=== PATIENT | female | born 1965 | race Caucasian/White ===

== ENCOUNTER → 2018-05-28 13:04 | Outpatient (CLI) | payer OTHER, SELFPAY ==
--- NOTE | 2018-05-28 | DI.MG.S_ITS ---
BILATERAL DIGITAL SCREENING MAMMOGRAM 3D/2D WITH CAD: 05/28/2018 CLINICAL: Routine screening. Comparison is made to exams dated: 02/24/2017 mammogram, 12/07/2015 mammogram, and 09/26/2014 mammogram - [facility]. The tissue of both breasts is heterogeneously dense. This may lower the sensitivity of mammography. Current study was also evaluated with a Computer Aided Detection (CAD) system. No significant masses, calcifications, or other findings are seen in either breast. There has been no significant interval change. IMPRESSION: NEGATIVE There is no mammographic evidence of malignancy. A 1 year screening mammogram is recommended. This exam was interpreted at Station ID: [id number]. NOTE: For mammograms, a report in lay terms will be sent to the patient. Approximately 15% of breast malignancies will not be visualized mammographically. In the management of a palpable breast mass, a negative mammogram must not discourage biopsy of a clinically suspicious lesion. Electronically Signed By: Lisa allan/franklyn:05/28/2018 14:56:39 letter sent: Normal Exam ACR BI-RADS Category 1: Negative [id number]
== END ==
PROVIDERS: PCP Family Medicine; Visit Provider Family Medicine
DX: Z12.31 Encounter for screening mammogram for malignant neoplasm of breast (principal)
CPT/HCPCS: 77063; 77067

== ENCOUNTER → 2018-06-07 09:27 | Outpatient (CLI) | payer OTHER, SELFPAY ==
[2018-06-07 11:05] LABS: Add Manual Diff / Slide Review NO; Basophils Percent Auto 0.5 % (0-2); Hematocrit 40.2 % (36-46); Hemoglobin 13.4 g/dL (12.0-16.0); Lymphocytes Percent Auto 28.9 % (25-40); Mean Corpuscular HGB Conc 33.4 % (30-36); Mean Corpuscular Hemoglobin 31.8 PG (26-34); Mean Corpuscular Volume 95.3 fL (80-100); Monocytes Percent Auto 6.9 % (3-14); Neutrophils Absolute Auto 3100 /uL (3000-5900); Neutrophils Percent Auto 60.7 % (50-75); Platelet Count 212 X10^3/uL (150-400); Red Blood Cell Count 4.22 X10^6/uL (4.0-5.2); Red Cell Distribution Width 13.1 % (11.6-14.8); White Blood Cell Count 5.1 X10^3/uL (4.5-11.0)
[2018-06-07 11:19] LABS: Erythrocyte Sedimentation Rate 5 MM/HR (0-20)
[2018-06-07 11:28] LABS: Alanine Aminotransferase 22 IU/L (9-52); Albumin 3.9 g/dL (3.5-5.0); Albumin Globulin Ratio 1.5 (1.0-2.8); Alkaline Phosphatase 74 U/L (38-126); Aspartate Aminotransferase 25 IU/L (14-36); BUN Creatinine Ratio 18.8 (6-22); Bilirubin Total 0.6 mg/dL (0.2-1.3); Blood Urea Nitrogen 15 mg/dL (7-17); Calcium 9.1 mg/dL (8.4-10.2); Carbon Dioxide 29 mmol/L (22-32); Chloride 103 mmol/L (98-107); Cholesterol 152 mg/dL (140-199); Estimated Glomerular Filt Rate > 60.0 mL/min (>60); Globulin 2.6 g/dL (1.7-4.1); Glucose 101 mg/dL (70-100); HDL Cholesterol 62 mg/dL (40-60); HEMOLYSIS < 15 (0-50); LDL Cholesterol Calculated 75 mg/dL (<100); Sodium 140 mmol/L (137-145); Total Protein 6.5 g/dL (6.3-8.2); Triglycerides 74 mg/dL (35-150)
[2018-06-07 11:34] LABS: C-Reactive Protein Quant < 0.5 mg/dL (<1.0)
== END ==
PROVIDERS: PCP Family Medicine; Visit Provider Family Medicine
DX: J32.9 Chronic sinusitis, unspecified (principal); M79.89 Other specified soft tissue disorders; N95.1 Menopausal and female climacteric states
CPT/HCPCS: 36415; 80053; 80061; 83001; 84443; 85025; 85651; 86140

== ENCOUNTER → 2018-06-10 12:09 | Outpatient (CLI) | payer OTHER, SELFPAY ==
--- NOTE | 2018-06-10 12:11 | DI.RAD.S_ITS ---
PROCEDURE: XR HIP W PEL IF DONE RT 2V INDICATIONS: right hip pain TECHNIQUE: AP pelvis with lateral view(s) of the right hip(s). COMPARISON: None. FINDINGS: Bones: No fractures or dislocations. Pelvic ring appears intact. No suspicious bony lesions. Mild right hip joint osteoarthritis is seen, no evidence of avascular necrosis. Soft tissues: The visualized bowel gas pattern is normal. No suspicious soft tissue calcifications. IMPRESSION: Mild right hip joint osteoarthritis. No fracture or dislocation. No evidence of avascular necrosis. Dictated by: Tyrell Almanza M.D. on 06/10/2018 at 13:25 Approved by: Tyrell Almanza M.D. on 06/10/2018 at 13:27
== END ==
PROVIDERS: PCP Family Medicine; Visit Provider Family Medicine
DX: M16.11 Unilateral primary osteoarthritis, right hip (principal); M25.551 Pain in right hip
CPT/HCPCS: 73502

== ENCOUNTER → 2018-07-13 13:00 | Outpatient (CLI) | payer OTHER, SELFPAY | PROVIDERS: PCP Family Medicine | DX: Z23 Encounter for immunization (principal) ==

== ENCOUNTER 2018-08-31 16:00 | Outpatient (RCR) | payer OTHER, SELFPAY ==
--- NOTE | 2018-08-24 16:45 | PT.OPPOC ---
Current Diagnoses Lesion of sciatic nerve, right lower limb (08/24/18) Unilateral primary osteoarthritis, right hip (08/24/18) Myalgia, other site (08/24/18) Provider Visit Care Team Role Provider Type Neda Washington MD Attending Provider Physician Primary Care Provider Specialty: Family Practice Address: [address] [place] [address], [facility] Email: [email or web address] Plan Of Care PT-OP-T Assessment and Plan Start: 08/25/18 16:24 Freq: Status: Active Protocol: Document 08/24/18 16:00 DCW (Rec: 08/25/18 17:46 DCW [id number]) Physical Therapy Assessment Rehab Potential Rehabilitation Potential Excellent Evaluation Complexity Number of Personal Factors/Comorbidities 1-2 Number of Body Systems Impaired 1-2 Clinical Presentation at Evaluation Stable Impairments Impairments Functional Activities Pain Soft Tissue Mobility Strength Goals Four Impairment Activity participation Short Term Goal (STG) Pt to have no increased symptoms ascending stairs STG Duration 09/24/18 Patient Registration Supervisor Goal (LTG) Pt to get up from ground following yard work with no increased symptoms LTG Duration 10/24/18 Three Impairment Hip ROM Shelter Goal (LTG) right hip IR equal to left hip IR LTG Duration 10/24/18 Two Impairment Moderate tone of Piriformis Patient Registration Supervisor Goal (LTG) Mild tone with palpation of piriformis LTG Duration 10/24/18 One Impairment Pt does not have an appropriate home exercise program Short Term Goal (STG) Pt to be independent and compliant with an appropriate HEP STG Duration 09/24/18 Assessment Summary Assessment Pt presents with signs and symptoms suggestive of piriformis syndrome. The location of her pain, combined with no increased pain when compression through her hip, and her decreased internal rotation, all make piriformis syndrome more likely than DJD, although her x-ray showing mild OA may cause some of her symptoms. Pt's history is complicated by multiple microdiscectomies. Pt should benefit from strengthening and flexibility training, to improve hip ROM, decrease pain , and improve functional mobility. Physical Therapy Plan Frequency and Duration Frequency of Treatment 1x/Week Duration of Treatment 10 weeks Plan of Care Start Date 08/24/18 Plan of Care End Date 11/02/18 Therapeutic Interventions Therapeutic Interventions Aquatic Therapy Home Exercise Program Joint Mobilizations Manual Therapy Patient/Caregiver Education Self-Care/Home Management Soft Tissue Mobilization Therapeutic Activities Therapeutic Exercises Modalities Cold Pack/Ice Massage Electric Stimulation Hot Packs Ultrasound Next Visit Focus/Plan Next Note Type Treatment Note Next Visit Plan Flexibility, Strengthening, Modalities Plan of Care Dates Plan of Care Start Date 08/24/18 Plan of Care End Date 11/02/18 Please Sign and Return: I have reviewed this Plan of Care and certify that the skilled therapy services above are required to meet the patient?s needs. Physician Signature Date Printed Name and Credentials Clinical Instructor Signature Printed Name and Credentials
--- NOTE | 2018-08-24 16:45 | PT.OIE ---
Current Diagnoses Lesion of sciatic nerve, right lower limb (08/24/18) Unilateral primary osteoarthritis, right hip (08/24/18) Myalgia, other site (08/24/18) Past Medical History (Last Updated 06/08/18 @ 10:18 by Anny Valladares) Frequent UTI (Chronic ~1996) Lumbar degenerative disc disease (Chronic) Rosacea (Chronic 1999) Chicken pox (Resolved ~1971) Past Surgical History (Last Updated 06/08/18 @ 10:18 by Anny Valladares) Anesthesia (Resolved) Status post discectomy (Resolved 2008) Status post discectomy (Resolved 2010) Status post hysterectomy (Resolved 2010) Provider Visit Care Team Role Provider Type Neda Washington MD Attending Provider Physician Primary Care Provider Specialty: Family Practice Address: [address] [place] [address] Email: [email or web address] Physical Therapy Initial Evaluation PT-OP-A Visit Information Start: 08/25/18 16:24 Freq: Status: Active Protocol: Document 08/24/18 16:00 DCW (Rec: 08/25/18 17:46 [facility] [id number]) Out-Patient Physical Therapy Visit Information Visit Information Visit Type Initial Evaluation Visit Start Time 16:00 Visit Stop Time 16:45 Total Visit Minutes 45 Visit Number 1 Number of CRANE HOIST OR LIFT OPERATOR Visits 0 Evaluation Information Evaluation Date 08/24/18 PT-OP-B Current Condition Start: 08/25/18 16:24 Freq: Status: Active Protocol: Document 08/24/18 16:00 DCW (Rec: 08/25/18 17:46 DC [id number]) Current Condition History of Current Condition Onset Date Two years Current Complaints Posteriolateral hip pain History of Current Condition Pt is a 53 year old female presenting with a two year history of occasional posteriolateral hip pain. Pt's history is complicated with two microdiscectomies, the first, L4-5 in 2008, which she reports was fantastic, and solved all the problems, until her right leg began cramping up again two years later, and had a second surgery, at L5-S1, which she admits has left her with general uncomfortableness. Recently, she has been experiencing some right hip pain, and she was unsure if this was related to her back, or her mild arthritis, which was just noted on a recent hip x-ray. Pt notes increased pain when getting up from sitting, crossing her legs, or carrying things up stairs. Reports getting up from the ground after yardwork is almost impossible due to pain , as is running or performing lunges. Additionally, pt is unable to sleep on her right side. Pt admits that she typically feels better after stretching. Notes no pain in her anterior hip. Prior Treatments and Tests 2018 X-ray: Mild R osteoarthritis 2017 Lumbar MRI: significantly decreased central disc protrusion following 2011 surgery, no other significant changes. 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 Prior Functional Status Baseline Function- ADL's Independent Baseline Function- Mobility Independent Current Functional Impairments (Reported) Functional Limitations- ADL's Difficulty getting up from chair or crossing legs, pain sleeping on right side Functional Limitations- Recreation/ Unable to get up from ground Hobbies after yard wiork without increased pain, unable to run or lunge without pain Personal Factors Other Personal Factors That May Effect History of multiple back Therapy/Recovery surgeries PT-OP-C Subjective Start: 08/25/18 16:24 Freq: Status: Active Protocol: Document 08/24/18 16:00 DCW (Rec: 08/25/18 17:46 DCW [id number]) Patient Questionnaires Lower Extremity Functional Scale LEFS Score 56/80 = 70% LEFS Impairment 20 to 39% Impaired (Score 48- 62) OP-PT Pain Assessment Pain Assessment Grid Paper Pain Assessment Grid Completed Yes Location Right Posterior Lateral Hip Intensity 4 Scale Used Numeric (1 - 10) Frequency Intermittent PT-OP-F Manual Assessment Start: 08/25/18 16:24 Freq: Status: Active Protocol: Document 08/24/18 16:00 DCW (Rec: 08/25/18 17:46 DCW [id number]) Manual Assessments Soft Tissue Assessment Soft Tissue Mobility Assessment Moderate tone through right piriformis Joint Mobility Assessment Joint Mobility Assessment No grinding/crepitus noted with passive hip ROM, no pain reported with compression PT-OP-K Range of Motion Start: 08/25/18 16:24 Freq: Status: Active Protocol: Document 08/24/18 16:00 DCW (Rec: 08/25/18 17:46 DCW [id number]) Hip Goniometric Range of Motion Hip Measured in Degrees Right Passive Internal Rotation 40 Left Passive Testing Position Prone Internal Rotation 55 Hip ROM Limitations Comments Right IR lacking 15 degrees vs left, all other hip ROM WNL PT-OP-L Special Tests Start: 08/25/18 16:24 Freq: Status: Active Protocol: Document 08/24/18 16:00 DCW (Rec: 08/25/18 17:46 DCW [id number]) Special Tests Hip Special Tests Piriformis Test Results Increased tenderness to palpation Scour Test Test Results Negative Lateral SI compression Test Results Negative Straight Leg Raise Test Results Negative Posterior Labral Test Test Results Negative Owens's Compression Test Results Negative KAILA Test Results Negative PT-OP-M Strength Start: 08/25/18 16:24 Freq: Status: Active Protocol: Document 08/24/18 16:00 DCW (Rec: 08/25/18 17:46 DCW [id number]) Hip Strength Hip Manual Muscle Testing Right Flexion (L2) 5 Normal Extension (S1) 5 Normal Abduction 5 Normal Adduction 5 Normal External Rotation 5 Normal Internal Rotation 5 Normal Left Flexion (L2) 5 Normal Extension (S1) 5 Normal Abduction 5 Normal Adduction 5 Normal External Rotation 4 Good Internal Rotation 4 Good PT-OP-Q Treatments Start: 08/25/18 16:24 Freq: Status: Active Protocol: Document 08/24/18 16:00 DCW (Rec: 08/25/18 17:46 DCW [id number]) Therapeutic Exercises Supine Exercises Piriformis Stretch Supine Exercise Name Azce-an-uvdihmny shoulder, Figure-4 Side right Prone Exercises Piriformis Stretch Prone Exercise Name Modified Fraser stretch Side right Sidelying Exercises Reverse Clamshell Sidelying Exercise Name Hip IR Side right Resistance Lv 3 Equipment Used T-band Clamshell Sidelying Exercise Name Hip ER Side right Resistance Lv 3 Equipment Used T-band Sitting Exercises Piriformis Stretch Sitting Exercise Name Seated Figure-4 Side right PT-OP-T Assessment and Plan Start: 08/25/18 16:24 Freq: Status: Active Protocol: Document 08/24/18 16:00 DCW (Rec: 08/25/18 17:46 DCW [id number]) Physical Therapy Assessment Rehab Potential Rehabilitation Potential Excellent Evaluation Complexity Number of Personal Factors/Comorbidities 1-2 Number of Body Systems Impaired 1-2 Clinical Presentation at Evaluation Stable Impairments Impairments Functional Activities Pain Soft Tissue Mobility Strength Goals Four Impairment Activity participation Short Term Goal (STG) Pt to have no increased symptoms ascending stairs STG Duration 09/24/18 [facility] Goal (LTG) Pt to get up from ground following yard work with no increased symptoms LTG Duration 10/24/18 Three Impairment Hip ROM Pocketed Spring Machine Operator Goal (LTG) right hip IR equal to left hip IR LTG Duration 10/24/18 Two Impairment Moderate tone of Piriformis [facility] Goal (LTG) Mild tone with palpation of piriformis LTG Duration 10/24/18 One Impairment Pt does not have an appropriate home exercise program Short Term Goal (STG) Pt to be independent and compliant with an appropriate HEP STG Duration 09/24/18 Assessment Summary Assessment Pt presents with signs and symptoms suggestive of piriformis syndrome. The location of her pain, combined with no increased pain when compression through her hip, and her decreased internal rotation, all make piriformis syndrome more likely than DJD, although her x-ray showing mild OA may cause some of her symptoms. Pt's history is complicated by multiple microdiscectomies. Pt should benefit from strengthening and flexibility training, to improve hip ROM, decrease pain , and improve functional mobility. Physical Therapy Plan Frequency and Duration Frequency of Treatment 1x/Week Duration of Treatment 10 weeks Plan of Care Start Date 08/24/18 Plan of Care End Date 11/02/18 Therapeutic Interventions Therapeutic Interventions Aquatic Therapy Home Exercise Program Joint Mobilizations Manual Therapy Patient/Caregiver Education Self-Care/Home Management Soft Tissue Mobilization Therapeutic Activities Therapeutic Exercises Modalities Cold Pack/Ice Massage Electric Stimulation Hot Packs Ultrasound Next Visit Focus/Plan Next Note Type Treatment Note Next Visit Plan Flexibility, Strengthening, Modalities
--- NOTE | 2018-08-31 16:47 | PT.OTN ---
Current Diagnoses Unilateral primary osteoarthritis, right hip (08/31/18) Physical Therapy Treatment Note PT-OP-A Visit Information Start: 08/25/18 16:24 Freq: Status: Active Protocol: Document 08/31/18 16:00 DCW (Rec: 08/31/18 16:47 DC [id number]) Out-Patient Physical Therapy Visit Information Visit Information Visit Type Treatment Note Visit Start Time 16:00 Visit Stop Time 16:35 Total Visit Minutes 35 Visit Number 2 Number of GAS WELDING EQUIPMENT MECHANIC Visits 0 Evaluation Information Evaluation Date 08/24/18 PT-OP-B Current Condition Start: 08/25/18 16:24 Freq: Status: Active Protocol: Document 08/24/18 16:00 DCW (Rec: 08/25/18 17:46 DCW [id number]) Current Condition History of Current Condition Onset Date Two years Current Complaints Posteriolateral hip pain History of Current Condition Pt is a 53 year old female presenting with a two year history of occasional posteriolateral hip pain. Pt's history is complicated with two microdiscectomies, the first, L4-5 in 2008, which she reports was fantastic, and solved all the problems, until her right leg began cramping up again two years later, and had a second surgery, at L5-S1, which she admits has left her with general uncomfortableness. Recently, she has been experiencing some right hip pain, and she was unsure if this was related to her back, or her mild arthritis, which was just noted on a recent hip x-ray. Pt notes increased pain when getting up from sitting, crossing her legs, or carrying things up stairs. Reports getting up from the ground after yardwork is almost impossible due to pain , as is running or performing lunges. Additionally, pt is unable to sleep on her right side. Pt admits that she typically feels better after stretching. Notes no pain in her anterior hip. Prior Treatments and Tests 2018 X-ray: Mild R osteoarthritis 2017 Lumbar MRI: significantly decreased central disc protrusion following 2011 surgery, no other significant changes. 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 Prior Functional Status Baseline Function- ADL's Independent Baseline Function- Mobility Independent Current Functional Impairments (Reported) Functional Limitations- ADL's Difficulty getting up from chair or crossing legs, pain sleeping on right side Functional Limitations- Recreation/ Unable to get up from ground Hobbies after yard wiork without increased pain, unable to run or lunge without pain Personal Factors Other Personal Factors That May Effect History of multiple back Therapy/Recovery surgeries PT-OP-C Subjective Start: 08/25/18 16:24 Freq: Status: Active Protocol: Document 08/31/18 16:00 DCW (Rec: 08/31/18 16:47 DCW [id number]) OP-PT Subjective Patient Comments Patient Comments I can't beleive how much better it already feels. The stretching has helped a lot, and today was the first morning that during my morning walk, I didn't have burning in the back of my hip. PT-OP-F Manual Assessment Start: 08/25/18 16:24 Freq: Status: Active Protocol: Document 08/24/18 16:00 DCW (Rec: 08/25/18 17:46 DCW [id number]) Manual Assessments Soft Tissue Assessment Soft Tissue Mobility Assessment Moderate tone through right piriformis Joint Mobility Assessment Joint Mobility Assessment No grinding/crepitus noted with passive hip ROM, no pain reported with compression PT-OP-K Range of Motion Start: 08/25/18 16:24 Freq: Status: Active Protocol: Document 08/24/18 16:00 DCW (Rec: 08/25/18 17:46 DCW [id number]) Hip Goniometric Range of Motion Hip Measured in Degrees Right Passive Internal Rotation 40 Left Passive Testing Position Prone Internal Rotation 55 Hip ROM Limitations Comments Right IR lacking 15 degrees vs left, all other hip ROM WNL PT-OP-L Special Tests Start: 08/25/18 16:24 Freq: Status: Active Protocol: Document 08/24/18 16:00 DCW (Rec: 08/25/18 17:46 DCW [id number]) Special Tests Hip Special Tests Piriformis Test Results Increased tenderness to palpation Scour Test Test Results Negative Lateral SI compression Test Results Negative Straight Leg Raise Test Results Negative Posterior Labral Test Test Results Negative Owens's Compression Test Results Negative KAILA Test Results Negative PT-OP-M Strength Start: 08/25/18 16:24 Freq: Status: Active Protocol: Document 08/24/18 16:00 DCW (Rec: 08/25/18 17:46 DCW [id number]) Hip Strength Hip Manual Muscle Testing Right Flexion (L2) 5 Normal Extension (S1) 5 Normal Abduction 5 Normal Adduction 5 Normal External Rotation 5 Normal Internal Rotation 5 Normal Left Flexion (L2) 5 Normal Extension (S1) 5 Normal Abduction 5 Normal Adduction 5 Normal External Rotation 4 Good Internal Rotation 4 Good PT-OP-Q Treatments Start: 08/25/18 16:24 Freq: Status: Active Protocol: Document 08/31/18 16:00 DCW (Rec: 08/31/18 16:47 DCW [id number]) Therapeutic Exercises Supine Exercises Piriformis Stretch Supine Exercise Name Fupx-xf-djppdfjn shoulder Side right Standing Exercises Hip IR/ER Standing Exercise Name IR/ER with right knee on stool vs T-band resistance Side right Resistance Lv 1 Equipment Used T-band, stool Manual Therapy Treatment Soft Tissue Mobilization Quadratus Lumborum Body Location Right QL Mobilization Type Strumming Sustained Pressure Piriformis Body Location Right piriformis Mobilization Type Sustained Pressure Trigger Point Release Intensity/Depth Deep Body Position Sidelying Manual Traction Lumbar Details Inferior traction at iliac crest Body Position Sidelying Lower Extremity Details Right LE long-axis traction Body Position Supine PT-OP-T Assessment and Plan Start: 08/25/18 16:24 Freq: Status: Active Protocol: Document 08/31/18 16:00 DCW (Rec: 08/31/18 16:47 DCW [id number]) Physical Therapy Assessment Impairments Impairments Functional Activities Pain Soft Tissue Mobility Strength Goals Four Impairment Activity participation Short Term Goal (STG) Pt to have no increased symptoms ascending stairs STG Duration 09/24/18 Addresser Goal (LTG) Pt to get up from ground following yard work with no increased symptoms LTG Duration 10/24/18 Three Impairment Hip ROM Addresser Goal (LTG) right hip IR equal to left hip IR LTG Duration 10/24/18 Two Impairment Moderate tone of Piriformis Addresser Goal (LTG) Mild tone with palpation of piriformis LTG Duration 10/24/18 One Impairment Pt does not have an appropriate home exercise program Short Term Goal (STG) Pt to be independent and compliant with an appropriate HEP STG Duration 09/24/18 Assessment Summary Assessment Pt doing very well so far, significant reduction in symptoms. Pt agreeable to canceling next week's appointment to ensure she continues to progress without therapy. Physical Therapy Plan Frequency and Duration Frequency of Treatment 1x/Week Duration of Treatment 10 weeks Plan of Care Start Date 08/24/18 Plan of Care End Date 11/02/18 Therapeutic Interventions Therapeutic Interventions Aquatic Therapy Home Exercise Program Joint Mobilizations Manual Therapy Patient/Caregiver Education Self-Care/Home Management Soft Tissue Mobilization Therapeutic Activities Therapeutic Exercises Modalities Cold Pack/Ice Massage Electric Stimulation Hot Packs Ultrasound Next Visit Focus/Plan Next Note Type Treatment Note Next Visit Plan Flexibility, Strengthening, Modalities
--- NOTE | 2018-11-24 10:45 | PT.OPDS ---
Current Diagnoses Unilateral primary osteoarthritis, right hip (08/31/18) Provider Visit Care Team Role Provider Type Neda Washington MD Attending Provider Physician Primary Care Provider Specialty: Family Practice Address: [address] [place] [address], [facility] Email: [email or web address] Visit Number Visit Number 2 Discharge Summary PT-OP-B Current Condition Start: 08/25/18 16:24 Freq: Status: Active Protocol: Document 08/24/18 16:00 DCW (Rec: 08/25/18 17:46 DCW [id number]) Current Condition History of Current Condition Onset Date Two years Current Complaints Posteriolateral hip pain History of Current Condition Pt is a 53 year old female presenting with a two year history of occasional posteriolateral hip pain. Pt's history is complicated with two microdiscectomies, the first, L4-5 in 2008, which she reports was fantastic, and solved all the problems, until her right leg began cramping up again two years later, and had a second surgery, at L5-S1, which she admits has left her with general uncomfortableness. Recently, she has been experiencing some right hip pain, and she was unsure if this was related to her back, or her mild arthritis, which was just noted on a recent hip x-ray. Pt notes increased pain when getting up from sitting, crossing her legs, or carrying things up stairs. Reports getting up from the ground after yardwork is almost impossible due to pain , as is running or performing lunges. Additionally, pt is unable to sleep on her right side. Pt admits that she typically feels better after stretching. Notes no pain in her anterior hip. Prior Treatments and Tests 2018 X-ray: Mild R osteoarthritis 2017 Lumbar MRI: significantly decreased central disc protrusion following 2011 surgery, no other significant changes. 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 Prior Functional Status Baseline Function- ADL's Independent Baseline Function- Mobility Independent Current Functional Impairments (Reported) Functional Limitations- ADL's Difficulty getting up from chair or crossing legs, pain sleeping on right side Functional Limitations- Recreation/ Unable to get up from ground Hobbies after yard wiork without increased pain, unable to run or lunge without pain Personal Factors Other Personal Factors That May Effect History of multiple back Therapy/Recovery surgeries PT-OP-F Manual Assessment Start: 08/25/18 16:24 Freq: Status: Active Protocol: Document 08/24/18 16:00 DCW (Rec: 08/25/18 17:46 DCW [id number]) Manual Assessments Soft Tissue Assessment Soft Tissue Mobility Assessment Moderate tone through right piriformis Joint Mobility Assessment Joint Mobility Assessment No grinding/crepitus noted with passive hip ROM, no pain reported with compression PT-OP-K Range of Motion Start: 08/25/18 16:24 Freq: Status: Active Protocol: Document 08/24/18 16:00 DCW (Rec: 08/25/18 17:46 DCW [id number]) Hip Goniometric Range of Motion Hip Measured in Degrees Right Passive Internal Rotation 40 Left Passive Testing Position Prone Internal Rotation 55 Hip ROM Limitations Comments Right IR lacking 15 degrees vs left, all other hip ROM WNL PT-OP-L Special Tests Start: 08/25/18 16:24 Freq: Status: Active Protocol: Document 08/24/18 16:00 DCW (Rec: 08/25/18 17:46 DCW [id number]) Special Tests Hip Special Tests Piriformis Test Results Increased tenderness to palpation Scour Test Test Results Negative Lateral SI compression Test Results Negative Straight Leg Raise Test Results Negative Posterior Labral Test Test Results Negative Owens's Compression Test Results Negative KAILA Test Results Negative PT-OP-M Strength Start: 08/25/18 16:24 Freq: Status: Active Protocol: Document 08/24/18 16:00 DCW (Rec: 08/25/18 17:46 DCW [id number]) Hip Strength Hip Manual Muscle Testing Right Flexion (L2) 5 Normal Extension (S1) 5 Normal Abduction 5 Normal Adduction 5 Normal External Rotation 5 Normal Internal Rotation 5 Normal Left Flexion (L2) 5 Normal Extension (S1) 5 Normal Abduction 5 Normal Adduction 5 Normal External Rotation 4 Good Internal Rotation 4 Good PT-OP-T Assessment and Plan Start: 08/25/18 16:24 Freq: Status: Active Protocol: Document 11/24/18 10:43 DCW (Rec: 11/24/18 10:45 DCW [id number]) Physical Therapy Assessment Goals Four Impairment Activity participation Short Term Goal (STG) Pt to have no increased symptoms ascending stairs STG Duration 09/24/18 Longterm Goal (LTG) Pt to get up from ground following yard work with no increased symptoms LTG Duration 10/24/18 Three Impairment Hip ROM Mat Inspector Goal (LTG) right hip IR equal to left hip IR LTG Duration 10/24/18 Two Impairment Moderate tone of Piriformis Longterm Goal (LTG) Mild tone with palpation of piriformis LTG Duration 10/24/18 One Impairment Pt does not have an appropriate home exercise program Short Term Goal (STG) Pt to be independent and compliant with an appropriate HEP STG Duration 09/24/18 Assessment Summary Assessment Pt was last seen 08/31/18, and at that time, felt she was doing well, and she was instructed to call for follow- up visits within one month if needed. Pt has not scheduled any more visits, and will therefore be discharged from skilled PT at this time. Physical Therapy Plan Frequency and Duration Frequency of Treatment 1x/Week Duration of Treatment 10 weeks Plan of Care Start Date 08/24/18 Plan of Care End Date 11/02/18 Therapeutic Interventions Therapeutic Interventions Aquatic Therapy Home Exercise Program Joint Mobilizations Manual Therapy Patient/Caregiver Education Self-Care/Home Management Soft Tissue Mobilization Therapeutic Activities Therapeutic Exercises Modalities Cold Pack/Ice Massage Electric Stimulation Hot Packs Ultrasound Discharge Physical Therapy Discharge Reasons No Longer Attending PT Next Visit Focus/Plan Next Note Type Discharge Summary
== END 2018-11-24 14:44 ==
LOC: PHYS 16:00
PROVIDERS: PCP Family Medicine; Visit Provider Family Medicine
DX: M16.11 Unilateral primary osteoarthritis, right hip (principal)
CPT/HCPCS: 97110; 97140; 97161

== ENCOUNTER → 2019-07-07 07:39 | Outpatient (CLI) | payer OTHER, SELFPAY ==
--- NOTE | 2019-07-07 | DI.MG.S_ITS ---
BILATERAL DIGITAL SCREENING MAMMOGRAM 3D/2D WITH CAD: 07/07/2019 CLINICAL: Routine screening. Comparison is made to exams dated: 05/28/2018 mammogram, 02/24/2017 mammogram, and 12/07/2015 mammogram - [facility]. The tissue of both breasts is heterogeneously dense. This may lower the sensitivity of mammography. Current study was also evaluated with a Computer Aided Detection (CAD) system. No significant masses, calcifications, or other findings are seen in either breast. There has been no significant interval change. IMPRESSION: NEGATIVE There is no mammographic evidence of malignancy. A 1 year screening mammogram is recommended. This exam was interpreted at Station ID: [id number]. NOTE: For mammograms, a report in lay terms will be sent to the patient. Approximately 15% of breast malignancies will not be visualized mammographically. In the management of a palpable breast mass, a negative mammogram must not discourage biopsy of a clinically suspicious lesion. Electronically Signed By: Emmett juares/franklyn:07/07/2019 09:22:13 letter sent: Normal Exam ACR BI-RADS Category 1: Negative 3341F
== END ==
PROVIDERS: PCP Family Medicine; Visit Provider Family Medicine
DX: Z12.31 Encounter for screening mammogram for malignant neoplasm of breast (principal)
CPT/HCPCS: 77063; 77067

== ENCOUNTER → 2019-07-28 12:21 | Outpatient (CLI) | payer OTHER, SELFPAY | PROVIDERS: PCP Family Medicine | DX: Z23 Encounter for immunization (principal) | CPT/HCPCS: 90471; 90686 ==

== ENCOUNTER → 2019-08-08 14:10 | Outpatient (CLI) | payer OTHER, SELFPAY ==
--- NOTE | 2019-08-08 14:12 | DI.RAD.S_ITS ---
PROCEDURE: XR HAND LT 2V INDICATIONS: hand pain in all joints, 1st finger worse TECHNIQUE: 2 views of the hand(s) acquired. COMPARISON: Same date right hand radiographs. FINDINGS: Bones: No fractures or dislocations. Subtle marginal lucencies at the fifth digit distal middle phalanx ulnar aspect and third digit middle phalanx radial aspect. Mild osteoarthritis at the first CMC joint. No periosteal reaction. Carpal bones are normally aligned. No suspicious bony lesions. Soft tissues: No suspicious soft tissue calcifications. IMPRESSION: Mild osteoarthritis at the first CMC joint. Questionable nonspecific marginal lucencies at the third and fifth DIP joints which may represent osseous erosions. Dictated by: Harris Bentley M.D. on 08/08/2019 at 15:47 Approved by: Harris Bentley M.D. on 08/08/2019 at 15:53
--- NOTE | 2019-08-08 14:12 | DI.RAD.S_ITS ---
PROCEDURE: XR HAND RT 2V INDICATIONS: hand pain in all joints, 1st finger worse TECHNIQUE: 2 views of the hand(s) acquired. COMPARISON: [facility], CR, XR HAND LT 2V, 08/08/2019, 15:09. FINDINGS: Bones: No fractures or dislocations. Carpal bones are normally aligned. Minimal osteoarthritis at the first CMC joint. Small ossific density at the dorsal aspect of the second digit DIP joint which may be due to prior trauma. No osseous erosions identified. No suspicious bony lesions. Soft tissues: No suspicious soft tissue calcifications. IMPRESSION: Minimal osteoarthritis of the first CMC joint. No osseous erosions identified. Questionable prior trauma to the second digit DIP joint. Dictated by: Harris Bentley M.D. on 08/08/2019 at 15:53 Approved by: Harris Bentley M.D. on 08/08/2019 at 15:55
== END ==
PROVIDERS: PCP Family Medicine; Visit Provider Family Medicine
DX: M79.642 Pain in left hand (principal); M18.12 Unilateral primary osteoarthritis of first carpometacarpal joint, left hand
CPT/HCPCS: 73120

== ENCOUNTER → 2019-08-11 15:15 | Outpatient (CLI) | payer OTHER, SELFPAY ==
[2019-08-11 16:43] LABS: Rheumatoid Factor < 8.6 IU/mL (<12.0)
[2019-08-15 15:20] LABS: Fecal Immunochemical Test NOT DETECTED (NOT DETECTED)
[2019-08-16 11:26] LABS: CCP Antibody (IgG) < 16 Units (< 20)
== END ==
PROVIDERS: PCP Family Medicine; Visit Provider Family Medicine
DX: Z12.11 Encounter for screening for malignant neoplasm of colon (principal); M25.50 Pain in unspecified joint
CPT/HCPCS: 36415; 82274; 86200; 86430

== ENCOUNTER → 2020-01-06 09:26 | Outpatient (CLI) | payer OTHER, SELFPAY ==
--- NOTE | 2020-01-06 09:50 | DI.CT.S_ITS ---
PROCEDURE: CT SINUS SCREEN WO CON INDICATIONS: Recurrent sinusitis TECHNIQUE: Noncontrast 3.0 mm axial images acquired from the frontal sinuses to the mid-sella, with coronal and sagittal reformats. For radiation dose reduction, the following was used: automated exposure control, adjustment of mA and/or kV according to patient size. COMPARISON: [facility], CT, TEMPORAL/MASTOIDS W/O CONTRAST, 08/18/2017, 8:15. FINDINGS: Image quality: Excellent. Maxillary Sinuses: No bony remodeling or destruction. Sinuses are clear. Ethmoid Air Cells: No bony remodeling or destruction. Sinuses are clear. Sphenoid Sinuses: No bony remodeling or destruction. Sinuses are clear. Frontal Sinuses: No bony remodeling or destruction. Sinuses are clear. Ostiomeatal Complexes: Ostiomeatal complexes are patent. No Camila cells. Miscellaneous: Visualized intra-orbital contents are normal. No isabela bullosa or paradoxical turbinate curvature. No nasal septal deviation. There is minimal opacification of mastoid air cells bilaterally. Small right maxillary osteoma is unchanged. IMPRESSION: Clear sinuses Minimal opacification of a few mastoid air cells bilaterally. Dictated by: Marcello Cheng M.D. on 01/06/2020 at 9:53 Approved by: Marcello Cheng M.D. on 01/06/2020 at 10:03
== END ==
PROVIDERS: PCP Family Medicine; Referring Provider Registered Nurse; Visit Provider Registered Nurse
DX: J32.9 Chronic sinusitis, unspecified (principal)
CPT/HCPCS: 70486

== ENCOUNTER → 2020-09-04 | Outpatient (CLI) | payer OTHER, SELFPAY | PROVIDERS: PCP Family Medicine; Referring Provider Internal Medicine; Visit Provider Internal Medicine | DX: Z23 Encounter for immunization (principal) | CPT/HCPCS: 90471; 90686 ==

== ENCOUNTER → 2020-11-09 07:30 | Outpatient (CLI) | payer OTHER, SELFPAY ==
[2020-11-09] MEDS: COVID-19 VACC(MODERNA-1)/PF 100 MCG/0.5 ML VIAL IM (07:49)
== END ==
PROVIDERS: PCP Family Medicine; Visit Provider Internal Medicine
DX: Z23 Encounter for immunization (principal)
CPT/HCPCS: 0011A; 91301

== ENCOUNTER → 2020-12-07 07:30 | Outpatient (CLI) | payer OTHER, SELFPAY ==
[2020-12-07] MEDS: COVID-19 VACC #2, MRNA(MOD) 100 MCG/0.5 ML VIAL IM (07:37)
== END ==
PROVIDERS: PCP Family Medicine; Visit Provider Internal Medicine
DX: Z23 Encounter for immunization (principal)
CPT/HCPCS: 0012A; 91301

== ENCOUNTER 2021-01-06 04:01 | Emergency (ER) | payer OTHER, SELFPAY ==
[2021-01-06 04:48] VITALS: BP 147/83; PULSE 91; RESP 18; TEMP 36.6; O2SAT 97; BMI 31.8
--- NOTE | 2021-01-06 05:51 | ED.EYEPROB ---
HPI - Eye Problem General Chief complaint: Eye Problems Stated complaint: something in upper eyelid Time Seen by Provider: 01/06/21 05:03 Source: patient Limitations: no limitations History of Present Illness HPI Narrative: 55-year-old woman with mild seasonal allergies and asthma presents with left eye irritation since working in the [employer] yesterday. She feels that she can see some debris on the inside of her eyelid and has been unable to remove it. With the irritation she has been rubbing at her eye and now has also developed a left subconjunctival hemorrhage in the superior portion of the left eye. She is not noticing any visual changes no headaches no significant drainage. Over the last week she has had a bit more itching in both eyes and is wondering if there may be some additional reason to explain this. She does note that she typically has itching in her eyes in March with some of the pollens this week has been a view full weekend a number of green trees are blooming with quite a bit of pollen in the air. Related Data Home Medications Medication Instructions Recorded Confirmed omega fish oil PO 06/09/18 12/11/20 probiotics PO 06/09/18 12/11/20 tumeric PO 06/09/18 12/11/20 Previous Rx's Medication Instructions Recorded albuterol sulfate 90 mcg/actuation 2 puff INHALATION Q4-6H PRN #8.5 09/20/19 aerosol inhaler gram Allergies Allergy/AdvReac Type Severity Reaction Status Date / Time ibuprofen [IBUPROFEN] Allergy Unknown Verified 12/11/20 10:21 NSAIDS (Non-Steroidal Allergy Unknown Verified 12/11/20 10:21 Anti-Inflamma [NSAIDS (NON-STEROIDAL ANTI-INFLAMMA] Review of Systems Review of Systems Narrative: Remainder of review of systems including constitutional, ENT, cardiovascular, respiratory, GI, , musculoskeletal, skin, neurologic and psychiatric systems reviewed and are unremarkable except as noted in HPI. Patient History Medical History (Updated 01/06/21 @ 05:56 by Corrie Rose MD) Chicken pox (~1971) Frequent UTI (~1996) Lumbar degenerative disc disease Rosacea (1999) Surgical History Anesthesia Status post discectomy (2008) Status post discectomy (2010) Status post hysterectomy (2010) Family History Father Diabetes mellitus Heart attack Loud snoring Sleep apnea Hypertension Mother Hypertension Heart attack Stroke Loud snoring Grandmother Aneurysm Grandfather No problems noted. Grandmother Heart disease Social History Smoking Status: Never smoker Smoking Status: Never smoker alcohol intake frequency: 0-2 drinks per day Substance Use Type: does not use Exam Narrative Exam Narrative: General: Alert appropriate in no acute distress HEENT: Pupils are equal and reactive. Extra ocular eye movement is free and unrestricted. Left eye with subconjunctival hemorrhage in the upper outer quadrant. eyelid is inverted and there is a small particulate piece of matter that is stuck to the inner surface of the lid. Using a moistened Q-tip it is removed without difficulty. There is no evidence of scleral or corneal abrasions. Respiratory: Able to speak in full sentences, no obvious respiratory distress Skin: No obvious rashes, warm and dry Neurologic: Grossly intact no obvious asymmetries or abnormalities Psych, appropriate insight and affect, cooperative Initial Vital Signs Initial Vital Signs: Vital Signs Temperature 97.8 F 01/06/21 04:48 Pulse Rate 91 H 01/06/21 04:48 Respiratory Rate 18 01/06/21 04:48 Blood Pressure 147/83 H 01/06/21 04:48 Pulse Oximetry 97 01/06/21 04:48 Course Orders Ordered: Discontinued Medications Proparacaine HCl (Proparacaine 0.5% Ophth Nathalia) 1 drops EYE-BOTH NOW ONE Stop: 01/06/21 05:04 Last Admin: 01/06/21 06:15 Dose: Not Given Documented by: NICOLE Vital Signs Vital signs: Vital Signs - 8 hr 01/06/21 04:48 Temperature 97.8 F Pulse Rate 91 H Respiratory Rate 18 Blood Pressure 147/83 H Pulse Oximetry 97 MDM - Eye Problem MDM Narrative Medical decision making narrative: 55-year-old woman with particular matter stuck on the inner portion of the left eyelid causing irritation with subsequent subconjunctival hemorrhage secondary to itching. The debris is removed reassurance is given. She is safe for home discharge Discharge Plan Departure Patient Disposition: Home Clinical Impression: Foreign body in eye Qualifiers: Encounter type: initial encounter Laterality: left Qualified Code(s): T15.92XA - Foreign body on external eye, part unspecified, left eye, initial encounter Instructions: DI for Foreign Body in the Eye Activity Restrictions/Additional Instructions: Thank you for coming in this morning There was a small piece of debris that was stuck on the underside of your eyelid on the left. I was able to remove this with a Q-tip and a bit of moisture. There is no evidence of other damage. The subconjunctival hemorrhage should heal within the next week or so. If you are having additional problems or vision changes please feel free to return to the Emergency Department Prescriptions: No Action albuterol sulfate 90 mcg/actuation HFA aerosol inhaler 2 puff INHALATION Q4-6H PRN (Reason: bronchospasm) Qty: 8.5 RF: 0 tumeric PO RF: 0 omega fish oil PO RF: 0 probiotics PO RF: 0 Referrals: Neda Washington MD [Primary Care Provider] -
[2021-01-06 06:19] VITALS: BP 136/77; PULSE 50; RESP 18; TEMP 36.6; O2SAT 96
== END 2021-01-06 06:21 | disposition home or self-care (01) ==
PROVIDERS: Emergency Provider Emergency Medicine; PCP Family Medicine
DX: T15.92XA Foreign body on external eye, part unspecified, left eye, initial encounter (principal)
CPT/HCPCS: 99281

== ENCOUNTER → 2021-02-26 13:58 | Outpatient (CLI) | payer OTHER, SELFPAY ==
--- NOTE | 2021-02-26 13:59 | DI.MG.S_ITS ---
BILATERAL DIGITAL SCREENING MAMMOGRAM 3D/2D WITH CAD: 02/26/2021 CLINICAL: Routine screening. Comparison is made to exams dated: 07/07/2019 mammogram, 05/28/2018 mammogram, and 02/24/2017 mammogram - [facility]. The tissue of both breasts is heterogeneously dense. This may lower the sensitivity of mammography. Current study was also evaluated with a Computer Aided Detection (CAD) system. No significant masses, calcifications, or other findings are seen in either breast. There has been no significant interval change. IMPRESSION: NEGATIVE There is no mammographic evidence of malignancy. A 1 year screening mammogram is recommended. This exam was interpreted at Station ID: [id number]. NOTE: For mammograms, a report in lay terms will be sent to the patient. Approximately 15% of breast malignancies will not be visualized mammographically. In the management of a palpable breast mass, a negative mammogram must not discourage biopsy of a clinically suspicious lesion. Electronically Signed By: Maxi kemp/franklyn:02/26/2021 14:52:42 letter sent: Normal Exam ACR BI-RADS Category 1: Negative [id number]
== END ==
PROVIDERS: PCP Family Medicine; Referring Provider Family Medicine; Visit Provider Family Medicine
DX: Z12.31 Encounter for screening mammogram for malignant neoplasm of breast (principal)
CPT/HCPCS: 77063; 77067

== ENCOUNTER → 2021-08-20 14:03 | Outpatient (CLI) | payer OTHER, SELFPAY | PROVIDERS: PCP Family Medicine; Referring Provider Internal Medicine; Visit Provider Internal Medicine | DX: Z23 Encounter for immunization (principal) | CPT/HCPCS: 90471; 90686 ==

== ENCOUNTER → 2021-10-09 07:51 | Outpatient (CLI) | payer OTHER, SELFPAY | PROVIDERS: PCP Family Medicine; Visit Provider Physician Assistant | DX: L72.3 Sebaceous cyst (principal) | CPT/HCPCS: 87070; 87077; 87186; 87205 ==

== ENCOUNTER 2022-05-23 06:25 | Emergency (ER) | payer OTHER, SELFPAY ==
[2022-05-23 06:46] VITALS: BP 146/68; PULSE 77; RESP 20; TEMP 36.7; O2SAT 98; BMI 31.8
--- NOTE | 2022-05-23 07:21 | ED.BACK ---
HPI - Back Pain/Injury General Chief Complaint: Back Pain/Injury Stated Complaint: possible kidney stone or infection 1 week Time Seen by Provider: 05/23/22 07:21 Source: patient History of Present Illness HPI Narrative: This is a 56 year old female with history of rosacea and diskectomy for her lower back. Patient presents with complaint of low back pain. She states that it has been present for about a week it started after she was mowing in [facility] she had some spasm and tightness which has been slowly progressive she notices it a little bit more on the left side particularly with extension of her leg. She has appreciated that movement such as rotation, side bending and flexing at the waist make her symptoms worse. There has not been any pain radiating down her legs. She denies fevers, chills, no chest pain or shortness of breath, no nausea or vomiting. No diarrhea constipation, no loss of bowel or bladder control. No numbness or tingling radiating down her legs no saddle anesthesia. Patient denies any dysuria, urgency frequency or urinary symptoms. She was concerned about possible kidney stone or infection as her pain is kind of progress and become a little bit more prominent on the flank. She is never had any anterior abdominal discomfort. She describes it as spasming and sort of touching on occasion. She has mowed the lawn here locally in the last couple days and that seemed to worsen her symptoms as well. She is been trying naproxen and Tylenol with minimal improvement. 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 She is had a history of diskectomy x2 in the past for bulging disc. No tobacco, occasional alcohol, no illicit. Related Data Home Medications Medication Instructions Recorded Confirmed omega fish oil PO 06/09/18 10/09/21 probiotics PO 06/09/18 10/09/21 tumeric PO 06/09/18 10/09/21 Previous Rx's Medication Instructions Recorded albuterol sulfate 90 mcg/actuation 2 puff inhalation Q4-6H PRN 09/20/19 aerosol inhaler bronchospasm #8.5 grams cyclobenzaprine 10 mg tablet 10 mg PO TID PRN muscle spasm #14 05/23/22 tabs hydrocodone 5 mg-acetaminophen 325 1 tab PO Q6H PRN pain #5 tabs 05/23/22 mg tablet Allergies Allergy/AdvReac Type Severity Reaction Status Date / Time ibuprofen [IBUPROFEN] Allergy Unknown Verified 01/14/21 07:09 NSAIDS (Non-Steroidal Allergy Unknown Verified 01/14/21 07:09 Anti-Inflamma [NSAIDS (NON-STEROIDAL ANTI-INFLAMMA] Review of Systems Review of Systems ROS Unobtainable: All systems reviewed & are unremarkable except as noted in HPI and below Patient History Medical History Chicken pox (~1971) Ear bleeding Frequent UTI (~1996) Lumbar degenerative disc disease Rosacea (1999) Sebaceous cyst Stye Surgical History Anesthesia Status post discectomy (2008) Status post discectomy (2010) Status post hysterectomy (2010) Family History Father Diabetes mellitus Heart attack Loud snoring Sleep apnea Hypertension Mother Hypertension Heart attack Stroke Loud snoring Grandmother Aneurysm Grandfather No problems noted. Grandmother Heart disease Social History Smoking Status: Never smoker Smoking Status: Never smoker alcohol intake frequency: 0-2 drinks per day Substance Use Type: does not use Exam Narrative Exam Narrative: GENERAL: Alert and oriented x three, female in mild distress. HEENT: Head normocephalic, atraumatic, EOMI, pupils reactive, face symmetric, moist mucous membranes NECK: Supple, full range of motion CARDIOVASCULAR: Regular rate and rhythm without murmurs, rubs or gallops. RESPIRATORY: Breath sounds equal bilaterally, no wheezes rales or rhonchi. ABDOMEN: Soft, nontender. Normoactive bowel sounds all 4 quadrants. No guarding or rebound, rigidity, no mass : No CVA tenderness BACK: No cervical, thoracic or lumbar vertebral point tenderness. Patient has some mild discomfort on the left flank with palpation. She is passing present. Patient has normal range of motion. Patient's gait is normal. Rectal exam is deferred. Muscle strength is 5/5 in lower extremities, DTRs are 2/4 and lower extremities. Dorsalis pedis and tibialis pulses are 2+ and lower extremities. Sensation is intact in the lower extremities. EXTREMITIES: Normal range of motion, no clubbing or edema. Neurovascularly intact NEUROLOGICAL: Cranial nerves II through XII grossly intact. Moving all extremities SKIN: Warm, dry, no petechiae, no rashes or lesions. Initial Vital Signs Initial Vital Signs: Vital Signs Temperature 98.1 F 05/23/22 06:46 Pulse Rate 77 05/23/22 06:46 Respiratory Rate 20 05/23/22 06:46 Blood Pressure 146/68 H 05/23/22 06:46 Pulse Oximetry 98 05/23/22 06:46 Oxygen Delivery Method 05/23/22 06:46 Course Orders Ordered: Discontinued Medications Cyclobenzaprine HCl (Cyclobenzaprine 10 Mg Tablet) 10 mg PO NOW ONE Stop: 05/23/22 07:54 Last Admin: 05/23/22 08:41 Dose: 10 mg Documented By: JEANNE Vital Signs Vital signs: Vital Signs - 8 hr 05/23/22 06:46 Temperature 98.1 F Pulse Rate 77 Respiratory Rate 20 Blood Pressure 146/68 H Pulse Oximetry 98 Oxygen Delivery Method Room Air MDM - Back Pain/Injury Lab Data Labs: Urine Dip Bedside Urine Glucose Negative Bedside Urine Bilirubin - Negative Bedside Urine Ketone - Negative Urine Specific [place] 1.020 Bedside Urine Occult Blood - Negative Bedside Urine pH 6 Bedside Urine Protein - Negative Bedside Urine Urobilinogen - Negative Bedside Urine Nitrite - Negative Bedside Urine Leukocytes - Negative Esterase MDM Narrative Medical decision making narrative: This is a 56-year-old female with reproducible back pain worsened by movement, patient's urine is negative for signs of infection or blood and patient's clinical symptoms are not really consistent with kidney stone or other intra-abdominal process. Patient has had prior back issues with microdiskectomy in the past symptoms are different today no red flag symptoms. Plan for short course of muscle relaxer as well as narcotic pain medication but patient can continue with naproxen and Tylenol unless inadequate. Patient has meloxicam in the past but with minimal help for. Return precautions discussed all questions answered. Discharge Plan Departure Patient Disposition: Home Clinical Impression: Back pain, Recurrent urinary tract infection Instructions: DI for Back Strain or Sprain Activity Restrictions/Additional Instructions: Please follow-up with your physician if your symptoms are persisting. You may continue naproxen and/or Tylenol as needed. If in adequate you can take Enders 1 tablet every 6 hours instead of Tylenol. You can take naproxen with the Enders. This medication can make you sleepy do not drive, perform hazardous activities or make any major decisions while taking it. This medication will make you constipated please take a stool softener once to twice daily until stools are soft and regular. You may take muscle relaxer 1 tablet every 8 hours as needed for spasm. Prescription sent to [facility]. Moist heat, hot packs, hot showers or heating pads may be helpful to the affected area. Decrease your activity level until your back is improved. Please return for fevers, passing out, new weakness, loss of sensation, loss of bowel or bladder control, rapidly worsening symptoms, persistent vomiting or other new or concerning symptoms. Prescriptions: New cyclobenzaprine 10 mg tablet 10 mg PO TID PRN (Reason: muscle spasm) Qty: 14 0RF hydrocodone-acetaminophen 5-325 mg tablet 1 tab PO Q6H PRN (Reason: pain) Qty: 5 0RF No Action albuterol sulfate 90 mcg/actuation HFA aerosol inhaler 2 puff INHALATION Q4-6H PRN (Reason: bronchospasm) Qty: 8.5 0RF tumeric PO omega fish oil PO probiotics PO Referrals: Neda Washington MD [Primary Care Provider] - Visit Report Forms: Patient Portal/API
[2022-05-23] MEDS: CYCLOBENZAPRINE 10 MG TABLET PO (08:41)
== END 2022-05-23 08:49 | disposition home or self-care (01) ==
PROVIDERS: Emergency Provider Emergency Medicine; PCP Family Medicine
DX: N39.0 Urinary tract infection, site not specified (principal); M54.50 Low back pain, unspecified
CPT/HCPCS: 81003; 99283

== ENCOUNTER → 2022-07-22 09:00 | Outpatient (CLI) | payer OTHER, SELFPAY | PROVIDERS: PCP Family Medicine; Referring Provider Internal Medicine; Visit Provider Internal Medicine | DX: Z23 Encounter for immunization (principal) | CPT/HCPCS: 90471; 90686 ==

== ENCOUNTER → 2022-09-23 08:04 | Outpatient (CLI) | payer OTHER, SELFPAY ==
--- NOTE | 2022-09-23 08:05 | DI.MG.S_ITS ---
BILATERAL DIGITAL SCREENING MAMMOGRAM 3D/2D WITH CAD: 09/23/2022 CLINICAL: Routine screening. Comparison is made to exams dated: 02/26/2021 mammogram, 07/07/2019 mammogram, and 05/28/2018 mammogram - [facility]. Both breasts are heterogeneously dense, which may obscure small masses (category c / 51-75% glandular tissue). Current study was also evaluated with a Computer Aided Detection (CAD) system. No significant masses, calcifications, or other findings are seen in either breast. There has been no significant interval change. IMPRESSION: NEGATIVE There is no mammographic evidence of malignancy. A 1 year screening mammogram is recommended. Based on the Tyrer Cuzick model (a risk assessment model) the patient's lifetime risk is 11.2% and her 10 year risk is 3.4%. According to the ACR, ACS, and NCCN guidelines, an annual breast MRI exam along with mammogram is recommended if the patient's lifetime risk is 20% or greater. This exam was interpreted at Station ID: [id number]. NOTE: For mammograms, a report in lay terms will be sent to the patient. Approximately 15% of breast malignancies will not be visualized mammographically. In the management of a palpable breast mass, a negative mammogram must not discourage biopsy of a clinically suspicious lesion. Electronically Signed By: Ashok hinton/franklyn:09/23/2022 08:43:57 letter sent: Normal Exam ACR BI-RADS Category 1: Negative 3341F
== END ==
PROVIDERS: PCP Family Medicine; Referring Provider Family Medicine; Visit Provider Family Medicine
DX: Z12.31 Encounter for screening mammogram for malignant neoplasm of breast (principal)
CPT/HCPCS: 77063; 77067

== ENCOUNTER → 2022-09-30 08:11 | Outpatient (CLI) | payer OTHER, SELFPAY ==
--- NOTE | 2022-09-30 08:12 | DI.RAD.S_ITS ---
PROCEDURE: XR HAND LT MIN 3V INDICATIONS: Pain at MCP and DIP of left thumb with swelling TECHNIQUE: 3 views of the hand(s) acquired. COMPARISON: [facility], CR, XR HAND RT 2V, 08/08/2019, 15:11. FINDINGS: Bones: No fractures or dislocations. Moderate osteoarthritic changes at 1st CMC joint is seen. Carpal bones are normally aligned. No suspicious bony lesions. Soft tissues: No suspicious soft tissue calcifications. IMPRESSION: No acute left hand fracture or dislocation. 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 No gross bony erosive changes. Dictated by: Tyrell Almanza M.D. on 09/30/2022 at 10:40 Approved by: Tyrell Almanza M.D. on 09/30/2022 at 10:40
== END ==
PROVIDERS: PCP Family Medicine; Referring Provider Physician Assistant; Visit Provider Physician Assistant
DX: S63.642A Sprain of metacarpophalangeal joint of left thumb, initial encounter (principal); M18.12 Unilateral primary osteoarthritis of first carpometacarpal joint, left hand; M79.645 Pain in left finger(s); X58.XXXA Exposure to other specified factors, initial encounter
CPT/HCPCS: 73130

== ENCOUNTER → 2023-03-29 09:40 | Outpatient (CLI) | payer OTHER, SELFPAY ==
--- NOTE | 2023-03-29 09:42 | DI.RAD.S_ITS ---
PROCEDURE: XR CHEST 2V INDICATIONS: Worsening cough TECHNIQUE: 2 views of the chest were acquired. COMPARISON: None. FINDINGS: Surgical changes and devices: None. Lungs and pleura: Lungs are clear. No pleural effusions or pneumothorax. Mediastinum: Mediastinal contours are normal. Heart size is normal. Bones and chest wall: No suspicious bony abnormalities. Soft tissues appear unremarkable. IMPRESSION: No evidence of an acute cardiopulmonary abnormality. Dictated by: Yeyo Ogden D.O. on 03/29/2023 at 8:59 Approved by: Yeyo Ogden D.O. on 03/29/2023 at 9:00
== END ==
PROVIDERS: PCP Family Medicine; Referring Provider Registered Nurse; Visit Provider Registered Nurse
DX: R05.9 Cough, unspecified (principal)
CPT/HCPCS: 71046

== ENCOUNTER → 2023-09-08 | Outpatient (CLI) | payer OTHER, SELFPAY | PROVIDERS: PCP Family Medicine; Referring Provider Family Medicine; Visit Provider Family Medicine | DX: Z23 Encounter for immunization (principal) | CPT/HCPCS: 90471; 90686 ==

== ENCOUNTER → 2024-02-26 12:30 | Outpatient (CLI) | payer OTHER, SELFPAY ==
--- NOTE | 2024-02-26 12:32 | DI.US.S_ITS ---
LIMITED ULTRASOUND OF RIGHT BREAST: 02/26/2024 CLINICAL: Right breast rash. Comparison is made to exams dated: 02/26/2024 mammogram, 09/23/2022 mammogram, 02/26/2021 mammogram, 07/07/2019 mammogram, 05/28/2018 mammogram, and 02/24/2017 mammogram - [facility]. Color flow and real-time ultrasound of the right breast 4 o'clock and 8 o'clock regions were performed. Robbins scale images of the real-time examination were reviewed. Incidental 4:00 ectatic duct, benign. IMPRESSION: BENIGN There is no sonographic evidence of malignancy. There are no abnormalities seen in the right breast to correspond with the areas of clinical concern at 4 and 8 o'clock, however, clinical correlation and clinical followup are recommended. Return to annual mammogram screening schedule is recommended. This exam was interpreted at Station ID: [id number]. Electronically Signed By: Ashok Calvillo M.D. lc/:02/26/2024 13:35:50 letter sent: Clinical Evaluation Ultrasound BI-RADS: 2 Benign
--- NOTE | 2024-02-26 12:32 | DI.MG.S_ITS ---
BILATERAL DIGITAL DIAGNOSTIC MAMMOGRAM 3D/2D: 02/26/2024 CLINICAL: Right breast raised welt with rash and itching. Comparison is made to exams dated: 09/23/2022 mammogram, 02/26/2021 mammogram, and 07/07/2019 mammogram - [facility]. Both breasts are heterogeneously dense, which may obscure small masses (category c / 51-75% glandular tissue). No significant masses, calcifications, or other findings are seen in either breast. IMPRESSION: INCOMPLETE: NEEDS ADDITIONAL IMAGING EVALUATION There is no abnormality seen in the right breast to correspond with the area of clinical concern, however, ultrasound is recommended. Based on the Tyrer Cuzick model (a risk assessment model) the patient's lifetime risk is 11.1% and her 10 year risk is 3.6%. According to the ACR, ACS, and NCCN guidelines, an annual breast MRI exam along with mammogram is recommended if the patient's lifetime risk is 20% or greater. This exam was interpreted at Station ID: [id number]. NOTE: For mammograms, a report in lay terms will be sent to the patient. Approximately 15% of breast malignancies will not be visualized mammographically. In the management of a palpable breast mass, a negative mammogram must not discourage biopsy of a clinically suspicious lesion. Electronically Signed By: Ashok Calvillo M.D. lc/:02/26/2024 13:34:49 ACR BI-RADS Category 0: Incomplete [id number]
== END ==
PROVIDERS: PCP Family Medicine; Referring Provider Family Medicine; Visit Provider Family Medicine
DX: N63.10 Unspecified lump in the right breast, unspecified quadrant (principal)
CPT/HCPCS: 76642; 77066; G0279

== ENCOUNTER → 2024-08-23 18:01 | Outpatient (CLI) | payer OTHER, SELFPAY | PROVIDERS: PCP Family Medicine; Referring Provider Internal Medicine; Visit Provider Internal Medicine | DX: Z23 Encounter for immunization (principal) | CPT/HCPCS: 90471; 90656 ==